=== PATIENT | female | born 1955 | race Asian ===

== ENCOUNTER → 2016-09-30 | Day surgery (SDC) | payer BC ==
[2016-09-30] VITALS (8 sets, daily range): BP systolic 114–168; BP diastolic 48–74
[~2016-09-30] VITALS: Ht 149.9 cm; Wt 72.6 kg
[~2016-09-30] MED LIST: AMLODIPINE BESY10 MG ORAL; ASPIRIN325 MG ORAL; BSS 15ml BTL ONE; BSS 500ml btl ONE; Bupivacaine 0.75% 30ml vial INJ ONE; CANDESARTAN CILE8 MG PO; CARVEDILOL3.125 MG ORAL; CATAPRES-TTS 11 EACH TDERMAL; CLOPIDOGREL75 MG ORAL; DOCUSATE SODIU100 MG ORAL; DOXAZOSIN MESYLA4 MG ORAL; Dexamethasone 4mg/ml vial ONE; DiphenhydrAMINE 50mg/ml Inj IVP PRN; EPINEPHrine 1mg/1ml Amp ONE; FUROSEMIDE80 M1 ORAL; Goniosol 2.5% Opth Soln - 15ml ONE; HUMALOG KW200 UNIT/1 SQ; Kenalog-40 1ml Vial ONE; LANTUS SOL100 UNIT/1 SUBQ; LR 1000ml 1,000 ML IVLG SCH; LR 1000ml ONE; Labetalol 5mg/ml 20ml vial IV PRN; Lidocaine 1% MPF 10mg/ml 5ml ONE; Lidocaine 2% MPF 5ml Vial INJ ONE; Maxitrol Opth Susp 5ml ONE; NITROSTAT0.4 M2 SL; NS Irrig 1000ml ONE; Norco 5mg/325mg tab ORAL PRN; PRAVASTATIN SOD10 M1 ORAL; Povidone-Iodine 5% opth solution ONE; Propofol 10mg/ml 20ml IV ONE; Sodium Hyaluronate 14 mg/ml 0.85ml ONE; Sterile Water Irrig 1000ml IRRIG ONE; Tetracaine 0.5% Opth Soln ONE
--- NOTE | 2016-09-30 11:43 | Anethesia Preoperative Eval ---
Anesthesia Pre-op PMH/ROS General Date of Evaluation: Sep 30, 2016 Anesthesiologist: John ASA Score: ASA 3 Mallampati Score Class I : Soft palate, uvula, fauces, pillars visible Class II: Soft palate, uvula, fauces visible Class III: Soft palate, base of uvula visible Class IV: Only hard plate visible Mallampati Classification: Class III Surgeon: Mahsa Diagnosis: Left retinal detachment Surgical Procedure: Left eye vitrectomy Anesthesia History: none Family History: no anesthesia problems Allergies: Coded Allergies: PENICILLINS (Verified Allergy, Severe, 12/04/15) anaphylactic shock, mild rash Uncoded Allergies: iv contrast (Allergy, Mild, 04/16/16) itching, hives. Per Dr. Bragg (spoke 04/16/16), pt reports CT scan 15 years ago, not sure which medication she received as contrast agent. Medications: see eMAR Past Medical History Cardiovascular: Reports: CAD - s/p CT and stents SX4, HTN, CT - 2015, other - HLD, Denies: arrhythmia, valve dz Pulmonary: Denies: COPD, ORTEGA, asthma, other Gastrointestinal/Genitourinary: Denies: CRI, ESRD, GERD, other Neurologic/Psychiatric: Denies: CVA, TIA, dementia, depression/anxiety, other Endocrine: Reports: DM, Denies: hypothyroidism, other, steroids HEENT: Denies: RED CLIFF (L), RED CLIFF (R), cataract (L), cataract (R), glaucoma, other Hematology/Immune: Reports: anemia, Denies: DVT, bleeding disorder, other Musculoskeletal/Integumentary: Reports: other - Gout, Denies: DDD, DJD, OA, RA, edema PSxH Narrative: Bilatleral cataract, PTCA Anesthesia Pre-op Phys. Exam Physician Exam see chart Constitutional: NAD Cardiovascular: RRR Respiratory: CTA Airway Exam Mallampati Score: Class III Anesthesia Pre-op A/P Labs see chart Studies Pre-op Studies: EKG - sr Risk Assessment & Plan Assessment: ASA III Plan: MAC Status Change Before Surgery: No Pre-Antibiotics Drug: N/A JESSICA CASTILLO M.D. Sep 30, 2016 11:43
[2016-09-30] MEDS: Cyclopentolate 1% Opth Sol LEFT EYE SCH ×3 (11:45→12:02)
[2016-09-30] MEDS: Phenylephrine 2.5% Op Soln LEFT EYE SCH ×3 (11:46→12:02)
--- NOTE | 2016-09-30 13:31 | Pre-Procedure Note/Attestation ---
Pre-Procedure Note/Attestation Complete Prior to Procedure Planned Procedure: left Procedure Narrative: 23G PPV/EL/SO removal/AFX left eye Indications for Procedure Pre-Operative Diagnosis: tractional retinal detachment Attestation I attest that I discussed the nature of the procedure; its benefits; risks and complications; and alternatives (and the risks and benefits of such alternatives ), prior to the procedure, with the patient (or the patient's legal order entry representative). I attest that, if there was a reasonable possibility of needing a blood transfusion, the patient (or the patient's legal order entry representative) was given the [facility] standardized written summary, pursuant to the Hector Crocker Blood Safety Act ([place] Health and Safety Code # 1645, as amended). I attest that I re-evaluated the patient just prior to the surgery and that there has been no change in the patient's H&P, except as documented below: NILAM HOFF M.D. Sep 30, 2016 13:31
--- NOTE | 2016-09-30 13:49 | Immediate Post-Op Evaluation ---
Immediate Post-Op Evalulation Immediate Post-Op Evalulation Procedure: Left eye posterior vitrectomy Date of Evaluation: Sep 30, 2016 Time of Evaluation: 14:46 IV Fluids: 300 Blood Products: 0 Estimated Blood Loss: 0 Urinary Output: 0 Blood Pressure Systolic: 151 Blood Pressure Diastolic: 60 Pulse Rate: 57 Respiratory Rate: 16 O2 Sat by Pulse Oximetry: 98 Temperature (Fahrenheit): 98.3 Pain Score (1-10): 0 Nausea: No Vomiting: No Complications 0 Patient Status: awake, reacts, patent, none Hydration Status: adequate Drug: N/A JESSICA CASTILLO M.D. Sep 30, 2016 13:49
--- NOTE | 2016-09-30 13:49 | 48 Hour Post Anesthesia Eval ---
Post Anesthesia Evaluation Procedure: Left eye posterior vitrectomy Date of Evaluation: Sep 30, 2016 Blood Pressure Systolic: 158 0: 61 Pulse Rate: 58 Respiratory Rate: 17 O2 Sat by Pulse Oximetry: 96 Airway: patent Nausea: No Vomiting: No Pain Intensity: 0 Hydration Status: adequate Cardiopulmonary Status: at baseline Mental Status/LOC: patient returned to baseline Post-Anesthesia Complications: 0 Follow-up care needed: ready to discharge JESSICA CASTILLO M.D. Sep 30, 2016 13:49
--- NOTE | 2016-09-30 14:43 | Brief Operative Note ---
Immediate Post Operative Note Operative Note Chief Complaint: blurred vision Pre-op Diagnosis: tractional retinal detachment Procedure: 23G PPV/SO removal/EL/AFx left eye Post-op Diagnosis: tractional retinal detachment Post-op Diagnosis: same as pre-op Findings: consistent w/pre-op dx studies Surgeon: Mahsa Anesthesia: local Specimen: none Complications: none Condition: stable Fluids: minimal Estimated Blood Loss: none Drains: none Implant(s) used?: No NILAM HOFF M.D. Sep 30, 2016 14:43
--- NOTE | 2016-09-30 20:29 | Operative Note - Dictated ---
DATE: 09/30/2016 SURGEON: Dao Bragg M.D. PREOPERATIVE DIAGNOSIS: Tractional retinal detachment, left eye. POSTOPERATIVE DIAGNOSIS: Tractional retinal detachment, left eye. NAME OF OPERATION: A 23-gauge pars plana vitrectomy, endolaser, silicone oil removal, and an air-fluid exchange, left eye. ANESTHESIA: Local. BLOOD LOSS: None. COMPLICATIONS: None. 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 The retina has remained stable under the silicone oil. The patient requests silicone oil removal for visual rehabilitation. The findings were discussed with the patient as well as the risks, benefits, and alternatives to the above-named procedure and the patient wishes to proceed with surgery. The patient understands the risks include, but are not limited to, loss of vision and loss of the eye. Informed consent was obtained. The patient understands that vision maybe limited postoperatively due to the pre-existing detachment. DESCRIPTION OF THE PROCEDURE: On the day of the procedure, the left eye was noted to be the operative eye and marked. The patient received three sets of the standard preoperative eye drops in the holding area. The patient was then brought to the operative room with appropriate anesthesia monitors were placed. The left eye was again identified as the operative eye during time-out. The nonoperative eye was patched and shielded. The operative eye then received a retrobulbar block consisting of a 1 to 1 mixture of 2% lidocaine without epinephrine and 0.75% bupivacaine for a total 5 mL. Anesthesia and akinesia were noted to have been obtained. The operative eye was then prepped and draped in the usual sterile ophthalmic fashion. Eyelid speculum was placed in the operative eye. A 23-gauge cannulas were placed with the infusion located inferotemporally. The tenon 3 port pars plana vitrectomy was then performed. The silicone oil was removed. A super sharp blade was then used to make a paracentesis at the 4 o'clock meridian brown salt solution and cannula was used to remove any silicone oil droplets. The retina was inspected and was totally attached and additional endolaser was used to supplement the pendulum and photocoagulation. A 3 air-fluid exchanges were then performed. The 23-gauge cannulas were then removed. The superior temporal sclerotomy was sutured using 7-0 Vicryl. The wounds were checked for leakage and found to be water tight. Intra-ocular pressure was palpated found to be within normal limits. The patient then received subconjunctival injections of vancomycin and dexamethasone. The lid speculum and drapes were then removed. Maxitrol ointment and atropine eye drops were applied to the eye and the eye was patched and shielded. The patient tolerated the procedure well and was returned to the postop care area in good condition. Dao Bragg M.D. DR: Allan JOB#: [id number] CC: [id number]
== END | disposition home or self-care (01) ==
LOC: SUR 11:25
DX: E11.3532 Type 2 diabetes mellitus with proliferative diabetic retinopathy with traction retinal detachment not involving the macula, left eye (principal); Z79.4 Long term (current) use of insulin; E11.42 Type 2 diabetes mellitus with diabetic polyneuropathy; E11.21 Type 2 diabetes mellitus with diabetic nephropathy; H49.00 Third [oculomotor] nerve palsy, unspecified eye; H49.20 Sixth [abducent] nerve palsy, unspecified eye; R00.1 Bradycardia, unspecified; E66.3 Overweight; Z68.32 Body mass index [BMI] 32.0-32.9, adult; I25.10 Atherosclerotic heart disease of native coronary artery without angina pectoris; Z95.5 Presence of coronary angioplasty implant and graft; I50.32 Chronic diastolic (congestive) heart failure; I10 Essential (primary) hypertension; M10.9 Gout, unspecified; I73.9 Peripheral vascular disease, unspecified; I25.2 Old myocardial infarction; E78.5 Hyperlipidemia, unspecified; D64.9 Anemia, unspecified; I70.0 Atherosclerosis of aorta; H53.2 Diplopia; Z88.8 Allergy status to other drugs, medicaments and biological substances; Z91.041 Radiographic dye allergy status; Z79.82 Long term (current) use of aspirin; Z79.899 Other long term (current) drug therapy
CPT/HCPCS: 67039; 82962; J0171; J0690; J1100; J2704; J3490; J7120; V2632; 94003; 94150